=== PATIENT | male | born 1980 | race Hispanic/Latino ===

== ENCOUNTER 2024-08-10 14:57 | Emergency (ER) | payer OTHER ==
[~2024-08-10] VITALS: Ht 167.6 cm; Wt 86.2 kg
[2024-08-10 15:04] VITALS: TEMP 98.6
[2024-08-10 15:30] LABS: BASOPHILS # (AUTO) 0.1 (0.0-0.1); BASOPHILS % 0.5 % (0.0-1.0); EOSINOPHILS # (AUTO) 0.2 (0.0-0.4); EOSINOPHILS % 1.8 % (0.0-6.0); HEMATOCRIT 44.2 % (38.2-49.6); HEMOGLOBIN 15.5 g/dL (14.0-18.0); LYMPHOCYTES # (AUTO) 0.8 (1.0-3.2); LYMPHOCYTES % 5.7 % (18.0-39.1); MEAN CORPUSCULAR HEMOGLOBIN 32.8 pg (28-32); MEAN CORPUSCULAR HGB CONC 35.1 g/dL (31-35); MEAN CORPUSCULAR VOLUME 93.6 fL (81-99); MONOCYTES # (AUTO) 0.9 (0.2-0.8); MONOCYTES % 6.8 % (4.4-11.3); NEUTROPHILS # (AUTO) 11.2 (2.1-6.9); NEUTROPHILS % 84.9 % (38.7-80.0); PLATELET COUNT 252 x10e3/uL (140-360); RED BLOOD COUNT 4.72 x10e6/uL (4.3-5.7); WHITE BLOOD COUNT 13.22 x10e3/uL (4.8-10.8)
[2024-08-10 15:43] LABS: ALBUMIN 4.4 g/dL (3.5-5.0); ALBUMIN/GLOBULIN RATIO 1.3 (0.8-2.0); ANION GAP 15.8 mmol/L (8-16); BILIRUBIN,TOTAL 0.6 mg/dL (0.2-1.2); CALCIUM 9.4 mg/dL (8.4-10.2); CREATININE, SERUM 0.87 mg/dL (0.72-1.25); POTASSIUM 3.8 mmol/L (3.5-5.1); TOTAL PROTEIN 7.9 g/dL (6.5-8.1)
[2024-08-10] MEDS ORDERED: SODIUM CHLORIDE 0.9% 100 ML ONE (16:06)
[2024-08-10] MEDS ORDERED: IOPAMIDOL 370 MG/ML 100 ML INFUS..BTL INJ ONE (16:06)
[2024-08-10] MEDS: KETOROLAC TROMETHAMINE 30 MG/ML VIAL IV STA (16:08)
[2024-08-10] MEDS: Morphine 4mg INJECTION 4 MG/ML INJ IV ONE (16:08)
[2024-08-10] MEDS: SODIUM CHLORIDE 0.9% 1000ML 1,000 ML IV SCH (16:51)
[2024-08-10] MEDS: BELLADONNA ALK/PHENOBARBITAL 5 ML UDC PO STA (17:11)
[2024-08-10] MEDS: MAGNESIUM/ALUMINUM/SIMETHICONE 30 ML UDC PO ONE (17:12)
[2024-08-10] MEDS: LIDOCAINE VISC 2% SOLN 15 ML UDC PO ONE (17:12)
[2024-08-10 17:16] VITALS: RESP 20
[2024-08-10] MEDS ORDERED: NAPROXEN250 MG PO (17:56)
[2024-08-10 18:00] VITALS: PULSE 112; RESP 20; O2SAT 98
== END 2024-08-10 18:09 | disposition home or self-care (01) ==
LOC: ER 15:08
DX: F45.8 Other somatoform disorders (principal); R07.89 Other chest pain; R53.1 Weakness
CPT/HCPCS: 36415; 70450; 71275; 72126; 72129; 72132; 80053; 84484; 85025; 93005; 99284; J1885; J2270; J7030; J7050; Q9967

== ENCOUNTER 2025-04-20 12:10 | Emergency (ER) | payer OTHER ==
[~2025-04-20] VITALS: Ht 167.6 cm; Wt 81.6 kg
[~2025-04-20 12:10] MED LIST: NAPROXEN250 MG PO
[2025-04-20 13:10] VITALS: TEMP 97.6
[2025-04-20 13:50] LABS: BASOPHILS % 0.4 % (0.0-1.0); EOSINOPHILS % 0.2 % (0.0-6.0); LYMPHOCYTES % 10.3 % (18.0-39.1); MONOCYTES % 7.3 % (4.4-11.3); NEUTROPHILS % 79.3 % (38.7-80.0); RED CELL DISTRIBUTION WIDTH 11.9 % (11.7-14.4)
[2025-04-20] MEDS: ONDANSETRON HCL INJ 2MG/ML 2ML 2 MG/ML VIAL IV STA (14:03)
[2025-04-20] MEDS: SODIUM CHLORIDE 0.9% 1000ML 1,000 ML IV STA (14:03)
[2025-04-20 14:04] LABS: INR 0.93
[2025-04-20 14:14] LABS: EST GLOMERULAR FILTRATION RATE 117.0 ML/MIN (>=60)
[2025-04-20] MEDS ORDERED: IOPAMIDOL 370 MG/ML 100 ML INFUS..BTL INJ ONE (14:36)
[2025-04-20 15:40] VITALS: PULSE 74; RESP 25
[2025-04-20 15:56] VITALS: BP 145/88; PULSE 68; RESP 26; O2SAT 100
== END 2025-04-20 16:01 | disposition other institution (70) ==
LOC: ER 13:25
DX: R51.9 Headache, unspecified (principal); I61.4 Nontraumatic intracerebral hemorrhage in cerebellum; R20.0 Anesthesia of skin; R11.2 Nausea with vomiting, unspecified; R42 Dizziness and giddiness; R53.1 Weakness
CPT/HCPCS: 36415; 70450; 71045; 74177; 80053; 82550; 83690; 83735; 84484; 85025; 85610; 85730; 93005; 99284; J2405; J2470; J7030; Q9967